=== PATIENT | female | born 1960 | race Caucasian/White ===

== ENCOUNTER 2025-02-15 16:56 | Inpatient (IN) | payer OTHER, BC ==
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
[2025-02-15] MEDS: SODIUM CHLORIDE 0.9% 1,000 ML IV STA (17:42)
[2025-02-15 17:50] LABS: Basophils # (A) 0.06 10*3/uL (0.00-0.10); Basophils % (A) 0.5 %; Eosinophils # (A) 0.13 10*3/uL (0.04-0.35); Eosinophils % (A) 1.1 %; HCT 39.2 % (37.2-46.3); HGB 13.3 g/dL (12.0-15.0); Lymphocytes # (A) 1.70 10*3/uL (0.90-5.00); Lymphocytes % (A) 14.3 %; MCH 31.8 pg (27.0-32.0); MCHC 33.9 g/dL (32.0-37.0); MCV 93.8 fL (80.0-97.0); Monocytes # (A) 0.74 10*3/uL (0.20-1.00); Monocytes % (A) 6.2 %; Neutrophils # (A) 9.18 10*3/uL (1.80-7.70); Neutrophils % (A) 77.6 %; Platelet Count 199 10*3/uL (140-440); RBC 4.18 10*6/uL (4.10-5.20); RDW 12.6 % (11.5-14.5); WBC 11.85 10*3/uL (4.50-10.00)
[2025-02-15 18:00] LABS: INR 1.0 (<1.2); Partial Thromboplastin Time 22.2 sec (22.0-30.0); Prothrombin Time 10.8 sec (10.0-12.5)
[2025-02-15 18:05] LABS: ALT 28 U/L (4-34); AST 42 U/L (14-36); African American GFR (CKD) >90 (>60 ml/min/1.73 sqM); Albumin 4.4 g/dL (3.5-5.0); Alkaline Phosphatase 167 U/L (38-126); Anion Gap 10 mmol/L; Blood Urea Nitrogen 17 mg/dL (7-17); Calcium 10.8 mg/dL (8.4-10.2); Carbon Dioxide 23 mmol/L (22-30); Chloride 107 mmol/L (98-107); Glucose 135 mg/dL (74-99); Non-African American GFR(CKD) >90 (>60 ml/min/1.73 sqM); Potassium 4.2 mmol/L (3.5-5.1); Sodium 140 mmol/L (137-145); Total Protein 6.9 g/dL (6.3-8.2)
[2025-02-15 18:35] LABS: Barbiturate Screen,Urine Not Detected (NotDetected); Benzodiazepines Screen,Urine Not Detected (NotDetected); Opiate Screen,Urine Not Detected (NotDetected); Oxycodone Screen, Urine Not Detected (NotDetected); Phencyclidine Screen,Urine Not Detected (NotDetected); Tricyclic Antidepressant,Urine Not Detected (NotDetected); Urn Cannabinoid Scrn Not Detected (NotDetected)
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
--- NOTE | 2025-02-15 18:39 | XR ---
EXAMINATION TYPE: XR ankle complete LT DATE OF EXAM: 02/15/2025 COMPARISON: NONE HISTORY: Pain TECHNIQUE: 3 views of the left ankle are submitted for evaluation. FINDINGS: Remote healed fractures of the distal fibula and tibia with osseous fusion. Additional osse ous fusion of the tibiotalar joint. No discrete acute fracture or dislocation. Diffuse subcutaneous e corinne. IMPRESSION: 1. No evidence for acute fracture or dislocation. 2. Remote healed fractures of the distal fibula and tibia with osseous fusion. Additional osseous fus ion of the tibiotalar joint. [facility], , 02/15/2025 6:37 PM
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
[2025-02-15] MEDS ORDERED: NALOXONE 0.4 MG/ML 1 ML VIAL IV PRN ×2 (22:08)
[2025-02-15] MEDS ORDERED: ACETAMINOPHEN TAB 325 MG TAB PO PRN (22:10)
[2025-02-15] MEDS ORDERED: ONDANSETRON 4 MG/2 ML VIAL IVP PRN (22:10)
[2025-02-15] MEDS: DEXTROSE 5%-0.45% NACL 1,000 ML IV SCH (23:53)
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
[2025-02-16] MEDS: KETOROLAC 15 MG/ML 1 ML VIAL IVP PRN (02:41)
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
[2025-02-16] MEDS: PANTOPRAZOLE 40 MG TABLET PO SCH (08:11)
[2025-02-16] MEDS: LOSARTAN 25 MG TAB PO SCH (08:11)
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
[2025-02-16 10:59] LABS: Basophils # (A) 0.02 X 10*3/uL (0.00-0.10); Basophils % (A) 0.3 %; Eosinophils # (A) 0.06 X 10*3/uL (0.04-0.35); Eosinophils % (A) 0.8 %; HCT 36.5 % (37.2-46.3); HGB 12.0 g/dL (12.0-15.0); Immature Grans, Automated 0.40 %; Lymphocytes # (A) 1.35 X 10*3/uL (0.90-5.00); Lymphocytes % (A) 17.7 %; MCH 30.9 pg (27.0-32.0); MCHC 32.9 g/dL (32.0-37.0); MCV 94.1 FL (80.0-97.0); Monocytes # (A) 0.70 X 10*3/uL (0.20-1.00); Monocytes % (A) 9.2 %; NRBC Per 100 WBC 0 X 10*3/uL (0.00-0.01); Neutrophils # (A) 5.46 X 10*3/uL (1.80-7.70); Neutrophils % (A) 71.6 %; Platelet Count 170 X 10*3/uL (140-440); RBC 3.88 X 10*6/uL (4.10-5.20); RDW 12.9 % (11.5-14.5); WBC 7.62 X 10*3/uL (4.50-10.00)
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
[2025-02-16] MEDS: ENOXAPARIN 40 MG/0.4 ML SYRINGE SQ SCH (13:45)
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
[2025-02-16] MEDS: LIDOCAINE 4% PATCH TOPICAL SCH (16:23)
[2025-02-17] MEDS: ACETAMINOPHEN TAB 325 MG TAB PO PRN (01:13)
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
[2025-02-18] MEDS: KETOROLAC 15 MG/ML 1 ML VIAL IVP PRN (08:22)
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
[2025-02-19] MEDS ORDERED: traMADol 50 MG TAB PO PRN (11:30)
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
[2025-02-20 07:39] VITALS: BP 126/73; PULSE 59; RESP 16; TEMP 98
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
== END 2025-02-20 12:05 | disposition home or self-care (01) | DRG 206 ==
LOC: EC 16:56 → 4SSUR 22:11
PROVIDERS: ADMIT Orthopaedic Surgery Orthopaedic Surgery of the Spine; ATTEND Orthopaedic Surgery Orthopaedic Surgery of the Spine
DX: S22.32XA Fracture of one rib, left side, initial encounter for closed fracture (principal); S32.039A Unspecified fracture of third lumbar vertebra, initial encounter for closed fracture; S32.019A Unspecified fracture of first lumbar vertebra, initial encounter for closed fracture; S32.029A Unspecified fracture of second lumbar vertebra, initial encounter for closed fracture; Z86.74 Personal history of sudden cardiac arrest; S80.01XA Contusion of right knee, initial encounter; I10 Essential (primary) hypertension; E66.9 Obesity, unspecified; S80.12XA Contusion of left lower leg, initial encounter; N20.0 Calculus of kidney; K21.9 Gastro-esophageal reflux disease without esophagitis; Z74.09 Other reduced mobility; M25.462 Effusion, left knee; Z68.34 Body mass index [BMI] 34.0-34.9, adult; Z79.899 Other long term (current) drug therapy; V43.52XA Car driver injured in collision with other type car in traffic accident, initial encounter; W22.11XA Striking against or struck by driver side automobile airbag, initial encounter; Z98.1 Arthrodesis status; Z96.651 Presence of right artificial knee joint; Y92.410 Unspecified street and highway as the place of occurrence of the external cause
CPT/HCPCS: 36415; 70450; 71045; 71250; 72125; 72131; 72170; 72192; 74150; 80053; 80306; 80320; 83605; 84484; 85025; 85610; 85730; 86850; 86870; 86900; 86901; 93005; 94760; 96361; 96374; 99285